=== PATIENT | female | born 1940 | race Caucasian/White ===

== ENCOUNTER 2023-05-13 15:19 | Outpatient (RCR) | payer OTHER, SELFPAY | END 2023-05-13 23:59 | disposition home or self-care (01) | LOC: RPT 15:19 | PROVIDERS: ATTENDING PHYSICIAN Specialist; FAMILY PHYSICIAN Internal Medicine Geriatric Medicine | DX: M50.13 Cervical disc disorder with radiculopathy, cervicothoracic region (principal); Z73.6 Limitation of activities due to disability | CPT/HCPCS: 97010; 97110; 97162 ==

== ENCOUNTER → 2023-05-28 09:51 | Outpatient (REF) | payer OTHER, SELFPAY ==
[2023-05-28 11:59] LABS: TSH Reflex To Free T4 2.74 uIU/ml (0.47-4.68)
== END ==
LOC: OLABPV 09:51
PROVIDERS: ATTENDING PHYSICIAN Nurse Practitioner Family
DX: E03.9 Hypothyroidism, unspecified (principal)
CPT/HCPCS: 36415; 84443

== ENCOUNTER 2023-06-02 10:00 | Outpatient (RCR) | payer OTHER, SELFPAY | END 2023-06-22 09:02 | disposition home or self-care (01) | LOC: RPT 10:00 | PROVIDERS: ATTENDING PHYSICIAN Specialist; FAMILY PHYSICIAN Internal Medicine Geriatric Medicine | DX: M50.13 Cervical disc disorder with radiculopathy, cervicothoracic region (principal); Z73.6 Limitation of activities due to disability | CPT/HCPCS: 97010; 97110; 97140 ==

== ENCOUNTER → 2023-06-13 13:03 | Outpatient (REF) | payer OTHER, SELFPAY | LOC: MRI 3T 13:03 | PROVIDERS: ATTENDING PHYSICIAN Specialist; FAMILY PHYSICIAN Internal Medicine Geriatric Medicine | DX: M50.121 Cervical disc disorder at C4-C5 level with radiculopathy (principal) | CPT/HCPCS: 72141; 97010; 97110; 97140 ==

== ENCOUNTER → 2023-10-26 13:02 | Outpatient (REF) | payer OTHER, SELFPAY ==
[2023-10-26 13:29] LABS: Hematocrit 34.1 % (37.0-47.0); Hemoglobin 11.4 g/dL (12.0-16.0); Mean Corp Hgb Conc. 33.4 g/dL (33.0-37.0); Mean Corpuscular Hgb 33.2 pg (27.0-31.0); Mean Corpuscular Volume 99.4 fL (81.0-99.0); Mean Platelet Volume 10.7 fL (7.4-10.4); Platelet Count 181 10^3/uL (130-400); Red Blood Cell Count 3.43 10^6/uL (4.20-5.40); White Blood Cell Count 6.8 10^3/uL (4.8-10.8)
[2023-10-26 14:16] LABS: C-Reactive Protein < 5.00 mg/L (0.0-10.00)
[2023-10-26 14:23] LABS: ALT (SGPT) 24 U/L (0-35); AST (SGOT) 53 U/L (14-36); Albumin 4.9 g/dl (3.5-5.0); Alkaline Phosphatase 69 U/L (38-126); Blood Urea Nitrogen 34 mg/dl (7-17); Calcium 9.7 mg/dl (8.4-10.2); Carbon Dioxide 23 mmol/L (22-30); Chloride 101 mmol/L (98-107); Glucose 101 mg/dl (70-99); Potassium 4.5 mmol/L (3.5-5.1); Sodium 139 mmol/L (135-145); Total Bilirubin 0.5 mg/dl (0.2-1.3); Total Protein 7.7 g/dl (6.3-8.2); eGFR 37.56
== END ==
LOC: OLABPV 13:02
PROVIDERS: ATTENDING PHYSICIAN Internal Medicine Rheumatology
DX: E55.9 Vitamin D deficiency, unspecified (principal); M06.09 Rheumatoid arthritis without rheumatoid factor, multiple sites; M16.0 Bilateral primary osteoarthritis of hip; M19.041 Primary osteoarthritis, right hand; M51.37 Other intervertebral disc degeneration, lumbosacral region; M54.12 Radiculopathy, cervical region; M72.2 Plantar fascial fibromatosis; M85.80 Other specified disorders of bone density and structure, unspecified site; N25.81 Secondary hyperparathyroidism of renal origin; Z22.7 Latent tuberculosis; Z79.899 Other long term (current) drug therapy
CPT/HCPCS: 36415; 80053; 85027; 86140

== ENCOUNTER → 2023-12-03 12:59 | Outpatient (REF) | payer OTHER, SELFPAY ==
[2023-12-03 14:00] LABS: Urine Albumin Trace (Neg - Trace); Urine Bilirubin Negative (Negative); Urine Character Clear (Clear); Urine Color Yellow; Urine Glucose Negative (Negative); Urine Ketone Negative (Negative); Urine Leukocyte 1+ (Negative); Urine Nitrite Negative (Negative); Urine Occult Blood Negative (Negative); Urine Specific Gravity 1.015 (<1.030); Urine Urobilinogen Negative (Neg - 1+)
[2023-12-03 14:01] LABS: % Basophils 0.8 % (0-2); % Eosinophils 4.4 % (0-6); % Immature Granulocytes 0.2 % (0-0.5); % Lymphocytes 36.2 % (20.5-51.1); % Monocytes 11.6 % (1.7-9.3); % Neutrophils 46.8 % (42.2-75.2); Absolute Basophils 0.1 10^3/uL (0-0.2); Absolute Eosinophils 0.3 10^3/uL (0-0.7); Absolute Lymphocytes 2.2 10^3/uL (1.2-3.4); Absolute Monocytes 0.7 10^3/uL (0.1-0.6); Absolute Neutrophils 2.9 10^3/uL (1.4-6.5); Hematocrit 30.6 % (37.0-47.0); Hemoglobin 10.4 g/dL (12.0-16.0); Mean Corpuscular Hgb 32.1 pg (27.0-31.0); Mean Corpuscular Volume 94.4 fL (81.0-99.0); Mean Platelet Volume 10.8 fL (7.4-10.4); Nucleated Red Blood Cells % 0 %; Platelet Count 175 10^3/uL (130-400); Red Blood Cell Count 3.24 10^6/uL (4.20-5.40); Red Cell Dist. Width 12.7 % (11.5-14.5); White Blood Cell Count 6.1 10^3/uL (4.8-10.8)
[2023-12-03 14:22] LABS: Urine Mucus Few
[2023-12-03 14:23] LABS: Urine Squamous Cell >30 /LPF (Few)
[2023-12-03 14:24] LABS: Urine Urothelial Cell 26-30 /LPF (FEW)
[2023-12-03 14:26] LABS: Urine Amorphous Seen; Urine Red Blood Cell 0-2 /HPF (0-2)
[2023-12-03 14:29] LABS: ALT (SGPT) 23 U/L (0-35); AST (SGOT) 49 U/L (14-36); Albumin 4.6 g/dl (3.5-5.0); Alkaline Phosphatase 50 U/L (38-126); Blood Urea Nitrogen 23 mg/dl (7-17); Calcium 9.3 mg/dl (8.4-10.2); Carbon Dioxide 23 mmol/L (22-30); Chloride 103 mmol/L (98-107); Glucose 100 mg/dl (70-99); HDL Cholesterol 83 mg/dl; LDL Cholesterol, Calculated 93 mg/dl; Phosphorus 3.5 mg/dl (2.5-4.5); Potassium 4.6 mmol/L (3.5-5.1); Sodium 139 mmol/L (135-145); Total Bilirubin 0.3 mg/dl (0.2-1.3); Total Cholesterol 205 mg/dl (50-199); Total Protein 7.4 g/dl (6.3-8.2); Triglyceride 146 mg/dl (10-149); Very Low Density Lipoprotein 29 mg/dl (0-30); eGFR 34.58
[2023-12-03 14:30] LABS: Urine Bacteria Few (Negative); Urine White Cell 21-25 /HPF (0-5)
[2023-12-03 14:57] LABS: TSH Reflex To Free T4 3.43 uIU/ml (0.47-4.68)
== END ==
LOC: OLABPV 12:59
PROVIDERS: ATTENDING PHYSICIAN Internal Medicine Geriatric Medicine
DX: I10 Essential (primary) hypertension (principal); E78.5 Hyperlipidemia, unspecified; E03.8 Other specified hypothyroidism; N25.81 Secondary hyperparathyroidism of renal origin; D64.9 Anemia, unspecified
CPT/HCPCS: 36415; 80053; 80061; 81003; 81015; 84100; 84443; 85025

== ENCOUNTER → 2024-02-25 09:50 | Outpatient (REF) | payer OTHER, SELFPAY ==
[2024-02-25 11:15] LABS: Urine Albumin Negative (Neg - Trace); Urine Bilirubin Negative (Negative); Urine Character Clear (Clear); Urine Color Yellow; Urine Glucose Negative (Negative); Urine Ketone Negative (Negative); Urine Leukocyte Negative (Negative); Urine Nitrite Negative (Negative); Urine Occult Blood Negative (Negative); Urine Urobilinogen Negative (Neg - 1+)
[2024-02-25 12:08] LABS: Blood Urea Nitrogen 30 mg/dl (7-17); Calcium 9.8 mg/dl (8.4-10.2); Carbon Dioxide 28 mmol/L (22-30); Chloride 98 mmol/L (98-107); Glucose 99 mg/dl (70-99); Potassium 4.8 mmol/L (3.5-5.1); Sodium 135 mmol/L (135-145)
[2024-02-25 12:28] LABS: Urine Protein 10 mg/dl (0-12)
[2024-02-25 15:18] LABS: Intact PTH 110.8 pg/ml (13.6-85.8)
== END ==
LOC: RCS 09:50
PROVIDERS: ATTENDING PHYSICIAN Internal Medicine Cardiovascular Disease; FAMILY PHYSICIAN Internal Medicine; REFERRING PHYSICIAN Internal Medicine Geriatric Medicine
DX: Z95.2 Presence of prosthetic heart valve (principal); N18.32 Chronic kidney disease, stage 3b
CPT/HCPCS: 36415; 80069; 81003; 82570; 83970; 84156; 93306

== ENCOUNTER → 2024-03-07 09:41 | Outpatient (REF) | payer OTHER, SELFPAY ==
[2024-03-07 10:21] LABS: % Basophils 0.1 % (0-2); % Immature Granulocytes 0.4 % (0-0.5); % Lymphocytes 13.2 % (20.5-51.1); % Monocytes 6.2 % (1.7-9.3); % Neutrophils 80.1 % (42.2-75.2); Absolute Immature Granulocytes 0.1 10^3/uL (0-0.05); Absolute Lymphocytes 1.5 10^3/uL (1.2-3.4); Absolute Monocytes 0.7 10^3/uL (0.1-0.6); Absolute Neutrophils 9.1 10^3/uL (1.4-6.5); Hematocrit 32.1 % (37.0-47.0); Hemoglobin 11.1 g/dL (12.0-16.0); Mean Corp Hgb Conc. 34.6 g/dL (33.0-37.0); Mean Corpuscular Hgb 32.6 pg (27.0-31.0); Mean Corpuscular Volume 94.1 fL (81.0-99.0); Mean Platelet Volume 11.6 fL (7.4-10.4); Nucleated Red Blood Cells % 0 %; Platelet Count 150 10^3/uL (130-400); Red Blood Cell Count 3.41 10^6/uL (4.20-5.40); Red Cell Dist. Width 12.2 % (11.5-14.5); Reticulocyte Count 1.7 % (0.4-2.8); White Blood Cell Count 11.3 10^3/uL (4.8-10.8)
[2024-03-07 10:41] LABS: ALT (SGPT) 22 U/L (0-35); AST (SGOT) 51 U/L (14-36); Albumin 4.9 g/dl (3.5-5.0); Alkaline Phosphatase 59 U/L (38-126); Blood Urea Nitrogen 34 mg/dl (7-17); Calcium 9.5 mg/dl (8.4-10.2); Carbon Dioxide 22 mmol/L (22-30); Chloride 98 mmol/L (98-107); Glucose 136 mg/dl (70-99); Iron 99 ug/dl (37-170); LDH 245 U/L (120-246); Potassium 4.9 mmol/L (3.5-5.1); Sodium 134 mmol/L (135-145); Total Bilirubin 0.6 mg/dl (0.2-1.3); Total Protein 7.9 g/dl (6.3-8.2); eGFR 34.58
[2024-03-07 10:50] LABS: Percent Saturation 31 % (20-50); Total Iron Binding Capacity 319 ug/dl (265-497)
[2024-03-07 11:07] LABS: TSH Reflex To Free T4 0.56 uIU/ml (0.47-4.68)
[2024-03-07 11:11] LABS: Ferritin 71.2 ng/ml (11.1-264.0)
[2024-03-07 11:26] LABS: Vitamin B12 > 1000 pg/ml (239-931)
[2024-03-07 12:03] LABS: Erythrocyte Sed Rate 29 mm/hour (0-20)
[2024-03-08 22:09] LABS: Erythropoietin (EPO) 4 mU/mL (4-27)
[2024-03-08 23:08] LABS: Haptoglobin 171 mg/dL (30-200)
== END ==
LOC: OLABPV 09:41
PROVIDERS: ATTENDING PHYSICIAN Internal Medicine Hematology & Oncology
DX: C50.912 Malignant neoplasm of unspecified site of left female breast (principal); D64.9 Anemia, unspecified
CPT/HCPCS: 36415; 80053; 82248; 82607; 82668; 82728; 82784; 83010; 83521; 83540; 83550; 83615; 84155; 84165; 84443; 85025; 85045; 85652; 86334

== ENCOUNTER 2024-03-17 13:53 | Emergency (ER) | payer OTHER, SELFPAY ==
[2024-03-17 14:00] VITALS: BP 197/85
--- NOTE | 2024-03-17 15:15 | EDRN ---
Sai Sotomayor NP in room w/pt.
--- NOTE | 2024-03-17 15:36 | ED.MUSCINJ ---
HPI-Injury
General
Chief Complaint: Fall
Source: patient
Exam Limitations: none
Time Seen by Provider: 03/17/24 15:14
Nursing documentation reviewed up to this point in time: agreed with
History of Present Illness-Injury
Is this injury a work related problem?: No
Is pt an associate of [facility]/[place]?: No
Initial Injury comments:
Patient states she was getting into van and hit top of head on door frame. Fell back out of van. Denies hitting back of head. No LOC. Complains of pain to right lateral hand. Injury occurred just [employer]
Past History
Past History
ED Past Medical History: HTN, Hypercholesterolemia, Valvular disease (Aortic stenosis/aortic valve replacement), Hypothyroidism and Other (Rheumatoid arthritis)
Social History
Tobacco: Non-smoker
Alcohol: Occasional (Rare alcohol use)
Drug: None
Personal:
Living: alone
Employment: Retired
Family History
Family History: Other (Noncontributory)
Review of Systems
Review of Systems
Allergies reviewed?: Yes
All Other Systems: ROS reviewed and negative except as documented in HPI and ROS
Constitutional: Reports no symptoms
EENT: Reports no symptoms
Respiratory: Reports no symptoms
Cardiac: Reports no symptoms
ABD/GI: Reports no symptoms
Musculoskeletal: Reports joint pain (pain to right lateral hand)
Skin: Reports no symptoms
Neurological: Reports no symptoms
Psychiatric: Reports no symptoms
Musculoskeletal Injury Exam
Musculoskeletal Injury Exam
Right Lateral Hand:
Pain with Movement?: Moderate
Tender to palpation?: Moderate
Soft tissue swelling?: Mild
Joint effusion?: None
Contusion?: Moderate
Hematoma-local bleeding into tissue?: Mild
Strain- Sprain- Tear (Connective tissue injury)?: None
Crepitus with movement?: No
Joint instability?: No
Malalignment/deformity?: No
Range of motion: Limited
Distal skin color and temperature: normal-warm & good color
Capillary Refill: normal
Normal distal neurovascular exam?: Yes
Peripheral Pulses: radial (right): 3+
Phy Exam
General Physical Exam
General Presentation: well appearing and no apparent distress
General age: appears stated age
General Skin: warm and dry
General Habitus: normal
General Mental: alert
ENT Exam
ENT Exam: EOMI, TM's normal and normocephalic
Eye Exam
Eye Exam: PERRL, EOMI, conjunctiva normal and globe normal
Neurological Exam
Neurological Exam: alert, oriented x3, CN II-XII intact, no motor deficits, no sensory deficits and speech normal
Carroll Coma Scale
Eye Opening: Spontaneous
Verbal Response: Oriented
Motor Response: Obeys Commands
GCS Total Score: 15
Cranial
Cranial Nerves: normal and no facial asymetry
EOM (CN3/4/6): intact
Motor
Seizure Activity: none
Gait: normal
Tremors: none
Right upper extremity: 4
Right lower extremity: 4
Left upper extremity: 4
Left lower extremity: 4
Bilateral upper extremities: 4
Bilateral lower extremities: 4
Sensory
Sensory Exam: intact
Cerebellar
Cerebellar Function: normal Romberg test
Musculoskeletal Exam
Musculoskeletal Exam: neuro vasc intact and other (Full nonpainful ROM to head/neck, back.)
Skin Exam
Skin Exam: normal color, warm/dry and no rash
Psychiatric Exam
Psychiatric Exam: normal mood/affect
Injury Course
Orders/Labs/Results
Orders:
Orders
03/17/24 14:01
CR Hand - Right Min 3 Views Urgent
Comment:
Reason For Exam: injury
03/17/24 15:33
Sling Right-Treatment ONCE
Ulnar Gutter Right-Treatment ONCE
*Radiology
Radiology exam reviewed: radiology read reviewed
*Pulse Oximetry
Patient hypoxic: no
*Critical Care Note
Total Time (30-74mins, 75-104mins- exclusive of procedures): Not Applicable
ED Attending Note
-
Portions of this chart may have been created with voice recognition software.� Occasional wrong word or��sound alike� substitutions may have occurred due to the inherent limitations of voice recognition software.
Discharge Plan
Departure
Patient Disposition: Home (Routine Discharge)
Date of Disposition: 03/17/24
Time of Disposition: 15:34
Patient with high blood pressure during this ER visit?: No
Condition: Good
Covid-19: Not Applicable
Discharge Problem:
Fracture of metacarpal, Head injury
Instructions: Hand fracture, Head injury in adults, Using Cold for Pain, Splint Care ED
Prescriptions:
No Action
cyanocobalamin (vitamin B-12) 1,000 MCG tablet
2,500 mcg PO DAILY
aspirin [Adult Low Dose Aspirin] 81 MG tablet,delayed release (DR/EC)
81 mg PO DAILY
calcium carbonate [calcium] 500 MG tablet
200 mg PO DAILY
levothyroxine 50 MCG tablet
50 mcg PO DAILY
infliximab [Remicade] 100 MG/10 ML recon soln
100 mg IV .[id number]
folic acid 1 MG tablet
1 mg PO DAILY
ezetimibe 10 MG tablet
10 mg PO HS
rosuvastatin 10 MG tablet
20 mg PO QPM
cholecalciferol (vitamin D3) [Vitamin D3] 2,000 UNIT capsule
2,000 unit PO DAILY
amoxicillin 500 MG capsule
2,000 mg PO NOW PRN (Reason: dental work)
Patient Comments:
only at dentist
amlodipine 2.5 MG tablet
2.5 mg PO HS
acetaminophen [Tylenol Extra Strength] 500 MG tablet
1,000 mg PO Q6HPRN PRN (Reason: pain)
losartan [Cozaar] 100 MG tablet
100 mg PO QPM
Referrals:
Kush Tamez MD [Family Provider] -
Larry Ramsey MD [Active] - Call in 1-3 days for appt
Interventions
Interventions:
*Risk Screen - Suicide Last Done: 03/17/24 15:54
*General Assessment Last Done: 03/17/24 15:54
*Neglect/Abuse Screening Last Done: 03/17/24 15:54
ED- Fall Risk Assessment Last Done: 03/17/24 16:10
*ED COVID-19 Vaccine History Last Done: 03/17/24 15:54
*Nursing Disposition Last Done: 03/17/24 16:10
ED-Musculoskeletal Assessment Last Done: 03/17/24 15:50
ED- Neurological Assessment Last Done: 03/17/24 15:50
ED-Skin Assessment Last Done: 03/17/24 15:50
Discharge Date and Time
Discharge Date/Time: 03/17/24 16:15
Print Language: VIETNAMESE
[2024-03-17 15:53] VITALS: BMI 29.2
[2024-03-17 15:56] VITALS: BP 188/71
== END 2024-03-17 16:15 | disposition home or self-care (01) ==
LOC: EMR 13:53
PROVIDERS: EMERGENCY PHYSICIAN Student in an Organized Health Care Education/Training Program; FAMILY PHYSICIAN Internal Medicine Geriatric Medicine
DX: S62.316A Displaced fracture of base of fifth metacarpal bone, right hand, initial encounter for closed fracture (principal); S09.90XA Unspecified injury of head, initial encounter; W22.09XA Striking against other stationary object, initial encounter; I10 Essential (primary) hypertension; E03.9 Hypothyroidism, unspecified; E78.00 Pure hypercholesterolemia, unspecified; I35.0 Nonrheumatic aortic (valve) stenosis; M06.9 Rheumatoid arthritis, unspecified; Z95.2 Presence of prosthetic heart valve
CPT/HCPCS: 99283; 29125; 73130

== ENCOUNTER 2024-03-22 11:17 | Emergency (ER) | payer OTHER, SELFPAY ==
[2024-03-22 11:39] VITALS: BP 167/70
[2024-03-22 13:10] VITALS: BP 184/67; BMI 28.3
--- NOTE | 2024-03-22 13:18 | ED.GENMED ---
History of Present Illness
General
Chief Complaint: Fall
Source: patient
Exam Limitations: none
Time Seen by Provider: 03/22/24 13:09
History of Present Illness
History of Present Illness:
83yoF with a history of hypertension, hyperlipidemia, and hypothyroidism presenting for evaluation after a fall 5 days ago. Patient was walking up a ramp into a van when she tripped. She hit the front of her head on the van. The impact caused her
to fall backwards off the ramp onto a sidewalk. She struck the back of her head on the concrete sidewalk. She states there was a loud sound due to the impact of her head. No loss of consciousness at that time. She did sustain a right hand
fracture and was already seen by hand surgery for this. She saw her PCP today who advised to go to the ED to obtain a CT scan of her head. She is asymptomatic at this time and denies any headache, visual changes, dizziness, vomiting. She is not
taking any blood thinners.
Past History
Past History
ED Past Medical History: HTN, Hypercholesterolemia, Valvular disease (Aortic stenosis/aortic valve replacement), Hypothyroidism and Other (Rheumatoid arthritis)
Social History
Tobacco: Non-smoker
Alcohol: Occasional (Rare alcohol use)
Drug: None
Personal:
Living: alone
Employment: Retired
Family History
Family History: Other (Noncontributory)
Phy Exam
General Physical Exam
General Presentation: well appearing and no apparent distress
General age: appears stated age
General Skin: warm and dry
General Habitus: normal
General Mental: alert
ENT Exam
ENT Exam: TM's normal (No hemotympanum), normocephalic and other (No external signs of head trauma. No cervical spine tenderness. )
Eye Exam
Eye Exam: PERRL
Pulmonary Exam
Pulmonary Exam: no respiratory distress
Neurological Exam
Neurological Exam: alert
[place] Coma Scale
Eye Opening: Spontaneous
Verbal Response: Oriented
Motor Response: Obeys Commands
GCS Total Score: 15
Skin Exam
Skin Exam: normal color and warm/dry
Psychiatric Exam
Psychiatric Exam: normal mood/affect
Course
Orders/Labs/Results
Orders:
Orders
03/22/24 11:18
CT Head W/o Iv Contrast Urgent
Comment:
Reason For Exam: head injury
Vital Signs
Initial and Last Documented VS:
Initial Vital Signs
Temp Pulse Resp BP Pulse Ox
98.1 F 66 18 167/70 98
03/22/24 11:39 03/22/24 11:39 03/22/24 11:39 03/22/24 11:39 03/22/24 11:39
Last Documented Vital Signs
Temp Pulse Resp BP Pulse Ox
98.0 F 67 16 184/67 99
03/22/24 13:10 03/22/24 13:10 03/22/24 13:10 03/22/24 13:10 03/22/24 13:10
MDM/Problems Addressed
Differential Diagnosis Includes:
83yoF sent to the ED by her PCP for a CT head. Head injury 5 days ago. Fell off a ramp and struck back of head on the sidewalk. No LOC. Asymptomatic at this time. Denies ANTHONY, vomiting, dizziness, visual changes. No blood thinners. She is hypertensive
with otherwise normal vitals. She is awake, alert, with a GCS of 15. No external signs of head trauma on exam. Differential diagnosis includes closed head injury, concussion, skull fracture, intracranial hemorrhage
CT head obtained in triage which is negative for traumatic injuries. Specifically, there is no hemorrhage or skull fracture. Patient stable for discharge. Advised f/u with PCP. Patient in agreement with plan and was discharged in stable condition.
*Critical Care Note
Total Time (30-74mins, 75-104mins- exclusive of procedures): Not Applicable
ED Attending Note
-
Portions of this chart may have been created with voice recognition software.� Occasional wrong word or��sound alike� substitutions may have occurred due to the inherent limitations of voice recognition software.
Discharge Plan
Departure
Patient Disposition: Home (Routine Discharge)
Date of Disposition: 03/22/24
Time of Disposition: 13:20
Patient with high blood pressure during this ER visit?: Yes
Discharge Problem:
Closed head injury
Instructions: Head Injury in Adults (DC)
Prescriptions:
No Action
cyanocobalamin (vitamin B-12) 1,000 MCG tablet
2,500 mcg PO DAILY
aspirin [Adult Low Dose Aspirin] 81 MG tablet,delayed release (DR/EC)
81 mg PO DAILY
calcium carbonate [calcium] 500 MG tablet
200 mg PO DAILY
levothyroxine 50 MCG tablet
50 mcg PO DAILY
infliximab [Remicade] 100 MG/10 ML recon soln
100 mg IV .[id number]
folic acid 1 MG tablet
1 mg PO DAILY
ezetimibe 10 MG tablet
10 mg PO HS
rosuvastatin 10 MG tablet
20 mg PO QPM
cholecalciferol (vitamin D3) [Vitamin D3] 2,000 UNIT capsule
2,000 unit PO DAILY
amoxicillin 500 MG capsule
2,000 mg PO NOW PRN (Reason: dental work)
Patient Comments:
only at dentist
amlodipine 2.5 MG tablet
2.5 mg PO HS
acetaminophen [Tylenol Extra Strength] 500 MG tablet
1,000 mg PO Q6HPRN PRN (Reason: pain)
losartan [Cozaar] 100 MG tablet
100 mg PO QPM
Activity Restrictions/Additional Instructions:
Please follow-up with your family doctor. Return to the ER with any new or worsening symptoms.
Interventions
Interventions:
*Risk Screen - Suicide Last Done: 03/22/24 11:37
*General Assessment Last Done: 03/22/24 11:37
*Neglect/Abuse Screening Last Done: 03/22/24 11:37
ED- Fall Risk Assessment Last Done: 03/22/24 13:10
*Nursing Disposition Last Done: 03/22/24 13:23
ED-Musculoskeletal Assessment Last Done: 03/22/24 13:10
ED- Neurological Assessment Last Done: 03/22/24 13:10
ED-Skin Assessment Last Done: 03/22/24 13:10
Discharge Date and Time
Discharge Date/Time: 03/22/24 13:23
Print Language: KYRGYZ
== END 2024-03-22 13:23 | disposition home or self-care (01) ==
LOC: EMR 11:17
PROVIDERS: EMERGENCY PHYSICIAN Emergency Medicine; FAMILY PHYSICIAN Internal Medicine Geriatric Medicine
DX: S09.90XA Unspecified injury of head, initial encounter (principal); W10.2XXA Fall (on)(from) incline, initial encounter; E03.9 Hypothyroidism, unspecified; E78.00 Pure hypercholesterolemia, unspecified; I10 Essential (primary) hypertension; M06.9 Rheumatoid arthritis, unspecified; Z95.2 Presence of prosthetic heart valve
CPT/HCPCS: 99284; 70450

== ENCOUNTER → 2024-04-01 13:42 | Outpatient (REF) | payer OTHER, SELFPAY | LOC: WDC 13:42 | PROVIDERS: ATTENDING PHYSICIAN Internal Medicine Hematology & Oncology; FAMILY PHYSICIAN Internal Medicine Geriatric Medicine | DX: C50.912 Malignant neoplasm of unspecified site of left female breast (principal); D64.9 Anemia, unspecified; Z12.31 Encounter for screening mammogram for malignant neoplasm of breast | CPT/HCPCS: 77063; 77067 ==

== ENCOUNTER → 2024-04-11 13:52 | Outpatient (REF) | payer OTHER, SELFPAY ==
[2024-04-11 14:46] LABS: % Basophils 0.4 % (0-2); % Eosinophils 1.8 % (0-6); % Immature Granulocytes 0.4 % (0-0.5); % Lymphocytes 32.7 % (20.5-51.1); % Monocytes 11.6 % (1.7-9.3); % Neutrophils 53.1 % (42.2-75.2); Absolute Eosinophils 0.2 10^3/uL (0-0.7); Absolute Lymphocytes 3.1 10^3/uL (1.2-3.4); Absolute Monocytes 1.1 10^3/uL (0.1-0.6); Absolute Neutrophils 5.1 10^3/uL (1.4-6.5); Hematocrit 36.3 % (37.0-47.0); Hemoglobin 11.9 g/dL (12.0-16.0); Mean Corp Hgb Conc. 32.8 g/dL (33.0-37.0); Mean Corpuscular Hgb 32.2 pg (27.0-31.0); Mean Corpuscular Volume 98.1 fL (81.0-99.0); Mean Platelet Volume 10.1 fL (7.4-10.4); Nucleated Red Blood Cells % 0 %; Platelet Count 189 10^3/uL (130-400); Red Cell Dist. Width 12.9 % (11.5-14.5); White Blood Cell Count 9.5 10^3/uL (4.8-10.8)
[2024-04-11 15:28] LABS: ALT (SGPT) 24 U/L (0-35); AST (SGOT) 45 U/L (14-36); Albumin 5.1 g/dl (3.5-5.0); Alkaline Phosphatase 67 U/L (38-126); Blood Urea Nitrogen 38 mg/dl (7-17); Calcium 9.6 mg/dl (8.4-10.2); Carbon Dioxide 26 mmol/L (22-30); Chloride 96 mmol/L (98-107); Glucose 101 mg/dl (70-99); Potassium 5.1 mmol/L (3.5-5.1); Sodium 137 mmol/L (135-145); Total Bilirubin 0.8 mg/dl (0.2-1.3); Total Protein 7.9 g/dl (6.3-8.2)
[2024-04-11 15:32] LABS: Vitamin D, 25-OH*** 54.8 ng/mL (30-80)
[2024-04-11 16:25] LABS: C-Reactive Protein < 5.00 mg/L (0.0-10.00)
== END ==
LOC: REG 13:52
PROVIDERS: ATTENDING PHYSICIAN Internal Medicine Rheumatology; FAMILY PHYSICIAN Internal Medicine Geriatric Medicine
DX: E55.9 Vitamin D deficiency, unspecified (principal); M06.09 Rheumatoid arthritis without rheumatoid factor, multiple sites; Z79.899 Other long term (current) drug therapy
CPT/HCPCS: 36415; 80053; 82306; 85025; 86140

== ENCOUNTER 2024-04-18 16:46 | Outpatient (RCR) | payer OTHER, SELFPAY | END 2024-04-18 23:59 | disposition home or self-care (01) | LOC: RPT 16:46 | PROVIDERS: ATTENDING PHYSICIAN Anesthesiology Pain Medicine; FAMILY PHYSICIAN Internal Medicine Geriatric Medicine | DX: M75.42 Impingement syndrome of left shoulder (principal); M25.512 Pain in left shoulder; Z73.6 Limitation of activities due to disability; M62.81 Muscle weakness (generalized) | CPT/HCPCS: 97110; 97112; 97140; 97162; 97530 ==

== ENCOUNTER 2024-05-16 15:02 | Outpatient (RCR) | payer OTHER, SELFPAY | END 2024-05-16 23:59 | disposition home or self-care (01) | LOC: RPT 15:02 | PROVIDERS: ATTENDING PHYSICIAN Anesthesiology Pain Medicine; FAMILY PHYSICIAN Internal Medicine Geriatric Medicine | DX: M75.42 Impingement syndrome of left shoulder (principal); M25.512 Pain in left shoulder; Z73.6 Limitation of activities due to disability; M62.81 Muscle weakness (generalized); Z85.3 Personal history of malignant neoplasm of breast | CPT/HCPCS: 97110; 97112; 97140 ==

== ENCOUNTER → 2024-09-12 11:32 | Outpatient (REF) | payer OTHER, SELFPAY ==
[2024-09-12 12:20] LABS: Hematocrit 32.8 % (37.0-47.0); Hemoglobin 10.9 g/dL (12.0-16.0); Mean Corp Hgb Conc. 33.2 g/dL (33.0-37.0); Mean Corpuscular Volume 97.3 fL (81.0-99.0); Nucleated Red Blood Cells % 0 %; Platelet Count 171 10^3/uL (130-400); Red Cell Dist. Width 12.4 % (11.5-14.5)
[2024-09-12 12:36] LABS: ALT (SGPT) 23 U/L (0-35); AST (SGOT) 47 U/L (14-36); Albumin 4.7 g/dl (3.5-5.0); Alkaline Phosphatase 51 U/L (38-126); Blood Urea Nitrogen 30 mg/dl (7-17); Calcium 9.3 mg/dl (8.4-10.2); Carbon Dioxide 25 mmol/L (22-30); Chloride 105 mmol/L (98-107); Glucose 100 mg/dl (70-99); HDL Cholesterol 60 mg/dl; LDL Cholesterol, Calculated 110 mg/dl; Potassium 4.6 mmol/L (3.5-5.1); Sodium 137 mmol/L (135-145); Total Protein 7.8 g/dl (6.3-8.2); Very Low Density Lipoprotein 28 mg/dl (0-30); eGFR 34.36
[2024-09-12 12:41] LABS: Urine Character Clear (Clear)
[2024-09-12 12:48] LABS: Vitamin D, 25-OH*** 60.7 ng/mL (30-80)
== END ==
LOC: OLABPV 11:32
PROVIDERS: ATTENDING PHYSICIAN Internal Medicine; FAMILY PHYSICIAN Internal Medicine Geriatric Medicine
DX: I10 Essential (primary) hypertension (principal); Z87.39 Personal history of other diseases of the musculoskeletal system and connective tissue; Z79.899 Other long term (current) drug therapy; E03.9 Hypothyroidism, unspecified
CPT/HCPCS: 36415; 80053; 80061; 81003; 81015; 82306; 82570; 84100; 84156; 85025

== ENCOUNTER → 2024-10-31 13:41 | Outpatient (REF) | payer OTHER, SELFPAY | LOC: HWRAD 13:41 | PROVIDERS: ATTENDING PHYSICIAN Specialist; FAMILY PHYSICIAN Internal Medicine Geriatric Medicine | DX: M19.012 Primary osteoarthritis, left shoulder (principal) | CPT/HCPCS: 73200 ==

== ENCOUNTER → 2024-11-06 09:46 | Outpatient (REF) | payer OTHER, SELFPAY | LOC: WDC 09:46 | PROVIDERS: ATTENDING PHYSICIAN Internal Medicine Hematology & Oncology; FAMILY PHYSICIAN Internal Medicine Geriatric Medicine | DX: C50.912 Malignant neoplasm of unspecified site of left female breast (principal); Z85.3 Personal history of malignant neoplasm of breast | CPT/HCPCS: 76641 ==

== ENCOUNTER 2024-12-01 05:48 | Day surgery (SDC) | payer OTHER, SELFPAY ==
--- NOTE | 2024-11-13 14:50 | CM ---
Addendum entered by Naomi Barksdale RN 11/28/24 13:17:
Patient has numerous questions regarding her pre-operative preparation. CM discussed pre operative shower guidelines and NPO status. CM further educated on medications as patient had multiple questions.
Addendum entered by Naomi Barksdale RN 11/15/24 13:32:
Demographics:confirmed
Living situation: Lives at [place], [place]
Support Person Post Operatively: Daughter will be staying with her.
History of
VN: No
SNF: No
Outpatient: NA
Has patient purchased required equipment: yes
PCP: Joi
Pharmacy: [facility]
Post Operative Discharge Plan: Home with family.
Original Note:
Cm reviewed medical records. Left message for orthopedic [place].
[2024-11-15 11:25] LABS: Hematocrit 33.9 % (37.0-47.0); Hemoglobin 11.2 g/dL (12.0-16.0); Mean Corp Hgb Conc. 33.0 g/dL (33.0-37.0); Mean Corpuscular Volume 95.8 fL (81.0-99.0); Platelet Count 194 10^3/uL (130-400); Red Cell Dist. Width 12.6 % (11.5-14.5)
[2024-11-15 11:58] LABS: ALT (SGPT) 23 U/L (0-35); AST (SGOT) 43 U/L (14-36); Albumin 4.6 g/dl (3.5-5.0); Alkaline Phosphatase 52 U/L (38-126); Blood Urea Nitrogen 49 mg/dl (7-17); Calcium 9.6 mg/dl (8.4-10.2); Carbon Dioxide 26 mmol/L (22-30); Chloride 101 mmol/L (98-107); Glucose 143 mg/dl (70-99); Potassium 5.1 mmol/L (3.5-5.1); Sodium 136 mmol/L (135-145); Total Protein 7.7 g/dl (6.3-8.2); eGFR 29.57
[2024-11-15 12:51] LABS: Glycohemoglobin (HgbA1c) 6.4 % (4.0-5.6)
[2024-11-15 14:10] VITALS: BMI 28.6
[2024-11-15 14:58] VITALS: BMI 28.6
[2024-12-01] VITALS (9 sets, daily range): BP systolic 124–152; BP diastolic 49–64
[2024-12-01] MEDS: TYLENOL 1000 MG PO (06:45)
[2024-12-01] MEDS: NORMOSOL-R/PLASMALYTE-A 1000 IV (06:46)
[2024-12-01] MEDS: ANCEF 5 IV (11:43)
== END 2024-12-01 12:10 | disposition home or self-care (01) ==
LOC: SDS 05:48
PROVIDERS: ATTENDING PHYSICIAN Specialist; FAMILY PHYSICIAN Internal Medicine Geriatric Medicine; OTHER PHYSICIAN Physician Assistant Medical
DX: M19.012 Primary osteoarthritis, left shoulder (principal); Z98.890 Other specified postprocedural states; Z96.612 Presence of left artificial shoulder joint
CPT/HCPCS: 23472; C1776; 36415; 73020; 80053; 83036; 85027; 86850; 86900; 86901; 87070; 93005; C1713

== ENCOUNTER → 2025-01-05 11:20 | Outpatient (REF) | payer OTHER, SELFPAY ==
[2025-01-05 12:50] LABS: Hematocrit 33.1 % (37.0-47.0); Hemoglobin 10.9 g/dL (12.0-16.0); Mean Corp Hgb Conc. 32.9 g/dL (33.0-37.0); Mean Corpuscular Volume 96.8 fL (81.0-99.0); Nucleated Red Blood Cells % 0 %; Platelet Count 200 10^3/uL (130-400); Red Cell Dist. Width 13.3 % (11.5-14.5)
[2025-01-05 13:09] LABS: C-Reactive Protein < 5.00 mg/L (0.0-10.00)
[2025-01-05 13:15] LABS: ALT (SGPT) 22 U/L (0-35); AST (SGOT) 51 U/L (14-36); Albumin 4.4 g/dl (3.5-5.0); Alkaline Phosphatase 55 U/L (38-126); Blood Urea Nitrogen 34 mg/dl (7-17); Calcium 9.7 mg/dl (8.4-10.2); Carbon Dioxide 25 mmol/L (22-30); Chloride 105 mmol/L (98-107); Glucose 98 mg/dl (70-99); Potassium 5.0 mmol/L (3.5-5.1); Sodium 135 mmol/L (135-145); Total Protein 7.6 g/dl (6.3-8.2); eGFR 31.80
== END ==
LOC: OLABPV 11:20
PROVIDERS: ATTENDING PHYSICIAN Internal Medicine Rheumatology; FAMILY PHYSICIAN Internal Medicine Geriatric Medicine; REFERRING PHYSICIAN Internal Medicine
DX: E55.9 Vitamin D deficiency, unspecified (principal); M06.09 Rheumatoid arthritis without rheumatoid factor, multiple sites; M16.0 Bilateral primary osteoarthritis of hip; M19.041 Primary osteoarthritis, right hand; M19.042 Primary osteoarthritis, left hand; M54.12 Radiculopathy, cervical region; M85.80 Other specified disorders of bone density and structure, unspecified site; N25.81 Secondary hyperparathyroidism of renal origin; Z22.7 Latent tuberculosis; Z79.899 Other long term (current) drug therapy
CPT/HCPCS: 36415; 80053; 84100; 85025; 86140